=== PATIENT | male | born 1990 | race Caucasian/White ===

== ENCOUNTER 2019-02-21 13:19 | Emergency (ER) | payer MEDICAID ==
[~2019-02-21] VITALS: Ht 190.5 cm; Wt 86.4 kg
[~2019-02-21 13:19] MED LIST: CLIN-96 PO; NO HOME MEDS
[2019-02-21 13:35] VITALS: BP 125/77
[2019-02-21] MEDS ORDERED: CEPH-572 PO (14:49)
[2019-02-21] MEDS ORDERED: SULF1TAB49 PO (14:49)
== END 2019-02-21 15:01 | disposition home or self-care (01) ==
LOC: ER 13:20
DX: L02.416 Cutaneous abscess of left lower limb (principal); L03.116 Cellulitis of left lower limb; F12.90 Cannabis use, unspecified, uncomplicated; Z79.899 Other long term (current) drug therapy
CPT/HCPCS: 99283

== ENCOUNTER 2019-04-21 16:29 | Emergency (ER) | payer MEDICAID ==
[~2019-04-21] VITALS: Ht 190.5 cm; Wt 88.6 kg
[2019-04-21 16:43] VITALS: BP 124/68
[2019-04-21] MEDS ORDERED: PERM60CR19 TP (16:54)
== END 2019-04-21 17:08 | disposition home or self-care (01) ==
LOC: ER 16:29
DX: R21 Rash and other nonspecific skin eruption (principal); L29.9 Pruritus, unspecified; F12.90 Cannabis use, unspecified, uncomplicated; Z79.2 Long term (current) use of antibiotics; Z79.899 Other long term (current) drug therapy
CPT/HCPCS: 99282

== ENCOUNTER 2019-05-22 16:47 | Emergency (ER) | payer MEDICAID ==
[~2019-05-22] VITALS: Ht 190.5 cm; Wt 79.5 kg
[~2019-05-22 16:47] MED LIST changes: +PERM60CR19 TP
[2019-05-22 17:11] LABS: BASOPHILS % (AUTO) 0.2 % (0-1); EOSINOPHILS % (AUTO) 0.3 % (0-6); HEMOGLOBIN 17.2 g/dl (14.0-17.9); LYMPHOCYTES # (AUTO) 1.1 X10'3 (1.1-4.8); LYMPHOCYTES % (AUTO) 11.1 % (21-51); MEAN CORPUSCULAR HEMOGLOBIN 30.9 PG (27.0-31.0); MEAN CORPUSCULAR VOLUME 88.4 FL (78-98); MEAN PLATELET VOLUME 8.2 FL (7.4-10.4); MONOCYTES # (AUTO) 0.8 X10'3 (0-0.9); MONOCYTES % (AUTO) 7.7 % (2-12); NEUTROPHILS # (AUTO) 8.2 X10'3 (1.8-7.7); NEUTROPHILS % (AUTO) 80.7 % (42-75); PLATELET COUNT 215 X10'3 (140-440); RED BLOOD COUNT 5.55 X10'6 (4.70-6.10); RED CELL DISTRIBUTION WIDTH 12.7 % (11.5-14.5); WHITE BLOOD COUNT 10.2 X10'3 (4.5-11.0)
[2019-05-22 17:21] LABS: ALANINE AMINOTRANSFERASE 51 U/L (12-78); ALBUMIN 4.2 G/DL (3.4-5.0); ALBUMIN/GLOBULIN RATIO 1.1 (1.1-1.5); ALKALINE PHOSPHATASE 60 IU/L (46-116); ANION GAP 8 (8-16); ASPARTATE AMINO TRANSFERASE 19 U/L (10-37); BILIRUBIN,TOTAL 0.8 MG/DL (0.1-1.0); BLOOD UREA NITROGEN 14 MG/DL (7-18); BUN/CREATININE RATIO 13.7 (5.4-32.0); CALCIUM 9.3 MG/DL (8.5-10.1); CHLORIDE 99 MMOL/L (99-107); CREATININE 1.02 MG/DL (0.60-1.10); GLUCOSE 146 MG/DL (70-104); SODIUM 138 MMOL/L (135-145); TOTAL CARBON DIOXIDE 31.2 MMOL/L (24-32); TOTAL PROTEIN 7.9 G/DL (6.4-8.2); eGFR 88 ML/MIN
[2019-05-22 17:26] LABS: POTASSIUM 2.9 MMOL/L (3.5-5.1)
[2019-05-22] MEDS ORDERED: potassium chloride 10mEq CAPSULE.SA PO STA (17:27)
[2019-05-22] MEDS ORDERED: potassium Cl 10 mEq/100mL bag IV ONE (17:30)
[2019-05-22] MEDS ORDERED: potassium Cl 20 mEq SR tablet PO ONE (17:45)
[2019-05-22] MEDS ORDERED: dicyclomine 10 MG capsule PO ONE (18:40)
[2019-05-22 19:08] LABS: CLARITY,URINE CLEAR (Clear); COLOR,URINE YELLOW (Yellow); GLUCOSE, URINE NEGATIVE (Neg); KETONES,URINE NEGATIVE (Neg); LEUKOCYTE ESTERASE ,URINE NEGATIVE (Neg); NITRITES, URINE NEGATIVE (Neg); OCCULT BLOOD,URINE NEGATIVE (Neg); PH,URINE 8.5 (4.8-8.0); PROTEIN,URINE NEGATIVE (Neg); UA COLLECTION TYPE VOIDED
[2019-05-22] MEDS ORDERED: DICY10CA88 PO (19:28)
[2019-05-22] MEDS ORDERED: ONDA4TAB6 PO (19:28)
[2019-05-22 19:36] VITALS: BP 132/85
== END 2019-05-22 19:38 | disposition home or self-care (01) ==
LOC: ER 16:48
DX: R11.2 Nausea with vomiting, unspecified (principal); E87.6 Hypokalemia; F12.90 Cannabis use, unspecified, uncomplicated
CPT/HCPCS: 36415; 80053; 81003; 85025; 85610; 96365; 96366; 99283; J3480

== ENCOUNTER 2019-05-24 00:12 | Emergency (ER) | payer MEDICAID ==
[~2019-05-24] VITALS: Ht 190.5 cm; Wt 62.9 kg
[~2019-05-24 00:12] MED LIST changes: +DICY10CA88 PO; +ONDA4TAB6 PO
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
[2019-05-24 01:46] LABS: ALANINE AMINOTRANSFERASE 46 U/L (12-78); ALBUMIN/GLOBULIN RATIO 1.3 (1.1-1.5); ALKALINE PHOSPHATASE 55 IU/L (46-116); ANION GAP 9 (8-16); ASPARTATE AMINO TRANSFERASE 14 U/L (10-37); BILIRUBIN,TOTAL 0.6 MG/DL (0.1-1.0); BLOOD UREA NITROGEN 6 MG/DL (7-18); BUN/CREATININE RATIO 7.4 (5.4-32.0); CALCIUM 8.8 MG/DL (8.5-10.1); CHLORIDE 104 MMOL/L (99-107); CREATININE 0.81 MG/DL (0.60-1.10); GLUCOSE 104 MG/DL (70-104); POTASSIUM 3.6 MMOL/L (3.5-5.1); SODIUM 139 MMOL/L (135-145); TOTAL CARBON DIOXIDE 25.6 MMOL/L (24-32); TOTAL PROTEIN 7.2 G/DL (6.4-8.2); eGFR > 90 ML/MIN
[2019-05-24 01:48] LABS: BASOPHILS % (AUTO) 0.2 % (0-1); EOSINOPHILS % (AUTO) 0.4 % (0-6); HEMOGLOBIN 15.8 g/dl (14.0-17.9); LYMPHOCYTES # (AUTO) 1.2 X10'3 (1.1-4.8); LYMPHOCYTES % (AUTO) 13.9 % (21-51); MEAN CORPUSCULAR HEMOGLOBIN 31.1 PG (27.0-31.0); MEAN CORPUSCULAR HGB CONC 35.1 g/dL (33.0-36.5); MEAN CORPUSCULAR VOLUME 88.7 FL (78-98); MEAN PLATELET VOLUME 8.4 FL (7.4-10.4); MONOCYTES # (AUTO) 0.5 X10'3 (0-0.9); MONOCYTES % (AUTO) 5.4 % (2-12); NEUTROPHILS # (AUTO) 6.8 X10'3 (1.8-7.7); NEUTROPHILS % (AUTO) 80.1 % (42-75); PLATELET COUNT 193 X10'3 (140-440); RED BLOOD COUNT 5.07 X10'6 (4.70-6.10); RED CELL DISTRIBUTION WIDTH 12.8 % (11.5-14.5); WHITE BLOOD COUNT 8.5 X10'3 (4.5-11.0)
[2019-05-24 02:36] VITALS: BP 136/81
== END 2019-05-24 03:39 | disposition left against medical advice (07) ==
LOC: ER 00:13
DX: R10.9 Unspecified abdominal pain (principal); R11.10 Vomiting, unspecified; Z53.21 Procedure and treatment not carried out due to patient leaving prior to being seen by health care provider
CPT/HCPCS: 36415; 80053; 85025

== ENCOUNTER 2019-08-30 11:27 | Emergency (ER) | payer MEDICAID ==
[~2019-08-30] VITALS: Ht 190.5 cm; Wt 83.0 kg
[~2019-08-30 11:27] MED LIST changes: +CLIN-90 PO; -CLIN-96 PO; -PERM60CR19 TP
[2019-08-30 11:48] VITALS: BP 131/64
== END 2019-08-30 13:36 | disposition left against medical advice (07) ==
LOC: ER 11:28
DX: N48.21 Abscess of corpus cavernosum and penis (principal); Z53.21 Procedure and treatment not carried out due to patient leaving prior to being seen by health care provider

== ENCOUNTER 2020-01-23 19:59 | Emergency (ER) | payer MEDICAID, OTHER ==
[~2020-01-23] VITALS: Ht 190.5 cm; Wt 90.0 kg
[~2020-01-23 19:59] MED LIST changes: -CLIN-90 PO; +CLIN-97 PO
[2020-01-23 20:08] VITALS: BP 166/79
[2020-01-23] MEDS ORDERED: ACET-3067 PO (20:17)
[2020-01-23] MEDS ORDERED: PENI500T2 PO (20:17)
== END 2020-01-23 20:25 | disposition home or self-care (01) ==
LOC: ER 20:00
DX: K02.9 Dental caries, unspecified (principal); F12.90 Cannabis use, unspecified, uncomplicated
CPT/HCPCS: 99283

== ENCOUNTER 2020-01-31 00:54 | Emergency (ER) | payer MEDICAID, OTHER ==
[~2020-01-31] VITALS: Ht 190.5 cm; Wt 88.6 kg
[~2020-01-31 00:54] MED LIST changes: +PENI500T2 PO
[2020-01-31] MEDS ORDERED: SULF1TAB49 PO (01:25)
[2020-01-31 01:45] VITALS: BP 151/71
== END 2020-01-31 01:47 | disposition home or self-care (01) ==
LOC: ER 00:55
DX: L03.115 Cellulitis of right lower limb (principal); L02.415 Cutaneous abscess of right lower limb; F12.90 Cannabis use, unspecified, uncomplicated; Z79.2 Long term (current) use of antibiotics; Z79.899 Other long term (current) drug therapy
CPT/HCPCS: 99283

== ENCOUNTER 2020-04-28 17:33 | Emergency (ER) | payer MEDICAID, OTHER ==
[~2020-04-28] VITALS: Ht 190.5 cm; Wt 88.6 kg
[~2020-04-28 17:33] MED LIST changes: -PENI500T2 PO
[2020-04-28 17:52] VITALS: BP 136/75
[2020-04-28] MEDS ORDERED: CLIN300C70 PO (18:21)
== END 2020-04-28 18:41 | disposition home or self-care (01) ==
LOC: ER 17:34
DX: K04.7 Periapical abscess without sinus (principal); F12.90 Cannabis use, unspecified, uncomplicated; Z79.2 Long term (current) use of antibiotics; Z79.899 Other long term (current) drug therapy
CPT/HCPCS: 99283

== ENCOUNTER 2020-11-27 01:40 | Emergency (ER) | payer MEDICAID, OTHER ==
[~2020-11-27] VITALS: Ht 190.5 cm; Wt 88.6 kg
[2020-11-27] MEDS ORDERED: normal saline 1000ML IV soln IVB ONE (02:35)
[2020-11-27] MEDS ORDERED: pantoprazole 40 MG vial IV ONE (02:35)
[2020-11-27] MEDS ORDERED: ondansetron/PF 4mg/2ml inj IV ONE (02:35)
[2020-11-27 03:45] LABS: BASOPHILS % (AUTO) 0.1 % (0-1); EOSINOPHILS % (AUTO) 0.1 % (0-6); HEMATOCRIT 48.9 % (42.0-52.0); HEMOGLOBIN 16.5 g/dl (14.0-17.9); LYMPHOCYTES # (AUTO) 0.9 X10'3 (1.1-4.8); LYMPHOCYTES % (AUTO) 8.6 % (21-51); MEAN CORPUSCULAR HEMOGLOBIN 30.6 PG (27.0-31.0); MEAN CORPUSCULAR HGB CONC 33.8 g/dL (33.0-36.5); MEAN CORPUSCULAR VOLUME 90.4 FL (78-98); MEAN PLATELET VOLUME 8.9 FL (7.4-10.4); MONOCYTES # (AUTO) 0.3 X10'3 (0-0.9); NEUTROPHILS # (AUTO) 8.7 X10'3 (1.8-7.7); NEUTROPHILS % (AUTO) 88.2 % (42-75); PLATELET COUNT 205 X10'3 (140-440); RED CELL DISTRIBUTION WIDTH 12.7 % (11.5-14.5); WHITE BLOOD COUNT 9.9 X10'3 (4.5-11.0)
[2020-11-27 04:08] LABS: ALANINE AMINOTRANSFERASE 21 U/L (12-78); ALBUMIN 4.4 G/DL (3.4-5.0); ALBUMIN/GLOBULIN RATIO 1.2 (1.1-1.5); ALKALINE PHOSPHATASE 69 IU/L (46-116); ANION GAP 11 (8-16); ASPARTATE AMINO TRANSFERASE 18 U/L (10-37); BILIRUBIN,TOTAL 0.5 MG/DL (0.1-1.0); BLOOD UREA NITROGEN 15 MG/DL (7-18); BUN/CREATININE RATIO 19.2 (5.4-32.0); CALCIUM 9.6 MG/DL (8.5-10.1); CHLORIDE 105 MMOL/L (99-107); CREATININE 0.78 MG/DL (0.60-1.10); GLUCOSE 134 MG/DL (70-104); LIPASE 50 U/L (73-393); SODIUM 142 MMOL/L (135-145); TOTAL CARBON DIOXIDE 26.1 MMOL/L (24-32); TOTAL PROTEIN 8.1 G/DL (6.4-8.2); eGFR > 90 ML/MIN
[2020-11-27] MEDS ORDERED: ONDA8TAB13 PO (04:31)
[2020-11-27] MEDS ORDERED: PANT-47 PO (04:31)
[2020-11-27 04:52] VITALS: BP 139/88
== END 2020-11-27 04:55 | disposition home or self-care (01) ==
LOC: ER 01:40
DX: R10.13 Epigastric pain (principal); R11.2 Nausea with vomiting, unspecified; F17.200 Nicotine dependence, unspecified, uncomplicated; Z88.0 Allergy status to penicillin; Z79.899 Other long term (current) drug therapy
CPT/HCPCS: 36415; 80053; 83690; 85025; 96361; 96374; 96375; 99284; C9113; J2405; J7030

== ENCOUNTER 2021-06-29 18:59 | Emergency (ER) | payer MEDICAID ==
[~2021-06-29] VITALS: Ht 190.5 cm; Wt 40.9 kg
[~2021-06-29 18:59] MED LIST changes: +ONDA8TAB13 PO; +PANT-47 PO
[2021-06-29 19:16] VITALS: BP 139/77
[2021-06-29] MEDS ORDERED: orphenadrine citrate 60mg/2ml inj. IM ONE (19:40)
[2021-06-29] MEDS ORDERED: ketorolac tromethamine 15mg/ml inj. IM ONE (19:40)
[2021-06-29] MEDS ORDERED: METH-797 PO (19:45)
[2021-06-29] MEDS ORDERED: NAPR-56 PO (19:45)
== END 2021-06-29 20:17 | disposition home or self-care (01) ==
LOC: ER 18:59
DX: M43.6 Torticollis (principal); M54.2 Cervicalgia; G89.29 Other chronic pain; Z88.0 Allergy status to penicillin; Z79.2 Long term (current) use of antibiotics; Z79.899 Other long term (current) drug therapy
CPT/HCPCS: 96372; 99284; J1885; J2360

== ENCOUNTER 2021-09-26 10:38 | Emergency (ER) | payer MEDICAID ==
[~2021-09-26] VITALS: Ht 190.5 cm; Wt 91.0 kg
[~2021-09-26 10:38] MED LIST changes: +METH-797 PO
[2021-09-26 10:44] VITALS: BP 129/79
== END 2021-09-26 17:07 | disposition left against medical advice (07) ==
LOC: ER 10:39
DX: K13.29 Other disturbances of oral epithelium, including tongue (principal); Z53.21 Procedure and treatment not carried out due to patient leaving prior to being seen by health care provider

== ENCOUNTER 2021-11-07 22:02 | Emergency (ER) | payer MEDICAID, OTHER ==
--- NOTE | 2021-11-07 23:04 | NUR ---
NOT IN LOBBY X1
== END 2021-11-08 03:55 | disposition left against medical advice (07) ==
LOC: ER 22:03
DX: Z53.21 Procedure and treatment not carried out due to patient leaving prior to being seen by health care provider (principal); M54.2 Cervicalgia

== ENCOUNTER 2022-05-25 08:42 | Emergency (ER) | payer MEDICAID, OTHER ==
[~2022-05-25] VITALS: Ht 190.5 cm; Wt 95.5 kg
[2022-05-25 09:43] LABS: BASOPHILS % (AUTO) 0.1 % (0-1); EOSINOPHILS % (AUTO) 0.2 % (0-6); HEMATOCRIT 47.6 % (42.0-52.0); HEMOGLOBIN 16.5 g/dl (14.0-17.9); LYMPHOCYTES # (AUTO) 0.9 X10'3 (1.1-4.8); LYMPHOCYTES % (AUTO) 7.7 % (21-51); MEAN CORPUSCULAR HEMOGLOBIN 31.3 PG (27.0-31.0); MEAN CORPUSCULAR HGB CONC 34.7 g/dL (33.0-36.5); MEAN CORPUSCULAR VOLUME 90.2 FL (78-98); MEAN PLATELET VOLUME 8.1 FL (7.4-10.4); MONOCYTES # (AUTO) 0.4 X10'3 (0-0.9); NEUTROPHILS # (AUTO) 10.7 X10'3 (1.8-7.7); PLATELET COUNT 205 X10'3 (140-440); RED BLOOD COUNT 5.28 X10'6 (4.70-6.10); RED CELL DISTRIBUTION WIDTH 12.8 % (11.5-14.5); WHITE BLOOD COUNT 12.1 X10'3 (4.5-11.0)
[2022-05-25 09:51] LABS: ALANINE AMINOTRANSFERASE 46 U/L (12-78); ALBUMIN 4.5 G/DL (3.4-5.0); ALBUMIN/GLOBULIN RATIO 1.2 (1.1-1.5); ALKALINE PHOSPHATASE 65 IU/L (46-116); ANION GAP 9 (8-16); ASPARTATE AMINO TRANSFERASE 23 U/L (10-37); BILIRUBIN,TOTAL 0.6 MG/DL (0.1-1.0); BLOOD UREA NITROGEN 20 MG/DL (7-18); BUN/CREATININE RATIO 21.7 (5.4-32.0); CALCIUM 9.5 MG/DL (8.5-10.1); CHLORIDE 104 MMOL/L (99-107); CREATININE 0.92 MG/DL (0.60-1.10); GLUCOSE 196 MG/DL (70-104); LIPASE < 50 U/L (73-393); SODIUM 143 MMOL/L (135-145); TOTAL CARBON DIOXIDE 29.7 MMOL/L (24-32); TOTAL PROTEIN 8.3 G/DL (6.4-8.2); eGFR > 90 ML/MIN
[2022-05-25 10:03] VITALS: BP 133/82
[2022-05-25] MEDS ORDERED: normal saline 1000ML IV soln IVB ONE (10:30)
[2022-05-25] MEDS ORDERED: diphenhydrAMINE 50 mg/ml inj IV ONE (10:30)
[2022-05-25] MEDS ORDERED: ondansetron/PF 4mg/2ml inj IV ONE (10:30)
[2022-05-25] MEDS ORDERED: haloperidol lactate 5mg/ml inj IM ONE (10:30)
== END 2022-05-25 12:18 | disposition home or self-care (01) ==
LOC: ER 08:42
DX: R11.15 Cyclical vomiting syndrome unrelated to migraine (principal); R11.2 Nausea with vomiting, unspecified; G89.29 Other chronic pain; Z88.0 Allergy status to penicillin; Z79.2 Long term (current) use of antibiotics; Z79.899 Other long term (current) drug therapy
CPT/HCPCS: 36415; 80053; 83690; 85025; 96372; 96374; 96375; 99284; J1200; J1630; J2405; J7030

== ENCOUNTER 2022-07-04 10:11 | Emergency (ER) | payer MEDICAID ==
[~2022-07-04] VITALS: Ht 190.5 cm; Wt 100.0 kg
[2022-07-04 10:16] VITALS: BP 159/96
[2022-07-04] MEDS ORDERED: HYDR-3965 PO (11:39)
[2022-07-04] MEDS ORDERED: HYDROcodone/acetaminophen 5mg/325mg tablet PO ONE (11:45)
== END 2022-07-04 12:04 | disposition home or self-care (01) ==
LOC: VAS 10:11
DX: S02.5XXA Fracture of tooth (traumatic), initial encounter for closed fracture (principal); K08.89 Other specified disorders of teeth and supporting structures; K02.9 Dental caries, unspecified; G89.29 Other chronic pain; Z88.0 Allergy status to penicillin; X58.XXXA Exposure to other specified factors, initial encounter; Y93.89 Activity, other specified; Y92.89 Other specified places as the place of occurrence of the external cause; Y99.8 Other external cause status
CPT/HCPCS: 99283

== ENCOUNTER 2022-07-08 21:50 | Emergency (ER) | payer MEDICAID ==
[~2022-07-08] VITALS: Ht 190.5 cm; Wt 102.3 kg
[2022-07-08] MEDS ORDERED: LIDOcaine Viscous 15ml cup MM STA (22:28)
[2022-07-08] MEDS ORDERED: chlorhexidine gluconate 15ml Cup****oral rinse MM ONE (22:30)
[2022-07-08] MEDS ORDERED: LIDOcaine 1% w/EPI 1:100,000 30ml vial (MDV) IJ ONE (22:30)
[2022-07-08] MEDS ORDERED: BUPIVAcaine/PF 2.5 mg/ml (0.25%) 30ml vial IJ ONE (22:30)
[2022-07-08] MEDS ORDERED: ketorolac trometh inj. 60 MG/2 ML VIAL IM ONE (22:35)
[2022-07-08] MEDS ORDERED: clindamycin 150mg capsule PO ONE (23:35)
[2022-07-08] MEDS ORDERED: KETO10TA2 PO (23:39)
[2022-07-08] MEDS ORDERED: CLIN150C2 PO (23:39)
[2022-07-08] MEDS ORDERED: ACET650T58 PO (23:40)
[2022-07-09 00:06] VITALS: BP 128/67
== END 2022-07-09 00:19 | disposition home or self-care (01) ==
LOC: ER 21:51
DX: K02.9 Dental caries, unspecified (principal); K08.89 Other specified disorders of teeth and supporting structures; G89.29 Other chronic pain; Z88.0 Allergy status to penicillin; Z88.5 Allergy status to narcotic agent; Z79.2 Long term (current) use of antibiotics; Z79.899 Other long term (current) drug therapy
CPT/HCPCS: 64400; 96372; 99284; J1885; J3490

== ENCOUNTER 2022-07-22 00:57 | Emergency (ER) | payer MEDICAID ==
[~2022-07-22] VITALS: Ht 193 cm; Wt 100.0 kg
[~2022-07-22 00:57] MED LIST changes: +KETO10TA2 PO
[2022-07-22 01:03] VITALS: BP 139/91
[2022-07-22] MEDS ORDERED: HYDROcodone/acetaminophen 5mg/325mg tablet PO ONE (01:10)
== END 2022-07-22 04:00 | disposition home or self-care (01) ==
LOC: ER 00:57
DX: K08.89 Other specified disorders of teeth and supporting structures (principal); G89.29 Other chronic pain; Z88.0 Allergy status to penicillin; Z88.5 Allergy status to narcotic agent; Z79.899 Other long term (current) drug therapy; Z79.1 Long term (current) use of non-steroidal anti-inflammatories (NSAID)
CPT/HCPCS: 99283

== ENCOUNTER 2022-07-27 13:20 | Emergency (ER) | payer MEDICAID ==
[~2022-07-27] VITALS: Ht 190.5 cm; Wt 100.0 kg
[2022-07-27 13:25] VITALS: BP 144/78
[2022-07-27] MEDS ORDERED: IBUP-1984 PO (14:19)
[2022-07-27] MEDS ORDERED: HYDROcodone/acetaminophen 10/325mg tab PO ONE (14:20)
[2022-07-27] MEDS ORDERED: ondansetron 4mg rapidly disintigrating tab PO ONE (14:20)
== END 2022-07-27 14:35 | disposition home or self-care (01) ==
LOC: ER 13:21
DX: K04.7 Periapical abscess without sinus (principal); Z88.0 Allergy status to penicillin; Z88.5 Allergy status to narcotic agent; Z79.899 Other long term (current) drug therapy; Z79.2 Long term (current) use of antibiotics; Z79.1 Long term (current) use of non-steroidal anti-inflammatories (NSAID)
CPT/HCPCS: 99283

== ENCOUNTER 2022-08-17 15:58 | Emergency (ER) | payer MEDICAID ==
[~2022-08-17] VITALS: Ht 190.5 cm; Wt 100.0 kg
[2022-08-17 16:13] VITALS: BP 121/64
[2022-08-17] MEDS ORDERED: HYDR-3965 PO (17:55)
[2022-08-17] MEDS ORDERED: HYDROcodone/acetaminophen 5mg/325mg tablet PO ONE (18:10)
== END 2022-08-17 18:10 | disposition home or self-care (01) ==
LOC: ER 15:59
DX: M54.59 Other low back pain (principal); G89.29 Other chronic pain; W19.XXXA Unspecified fall, initial encounter; Y93.89 Activity, other specified; Y92.89 Other specified places as the place of occurrence of the external cause; Y99.8 Other external cause status
CPT/HCPCS: 99283

== ENCOUNTER 2022-09-14 16:26 | Emergency (ER) | payer MEDICAID ==
[~2022-09-14] VITALS: Ht 190.5 cm; Wt 102.3 kg
[~2022-09-14 16:26] MED LIST changes: +HYDR-3965 PO
[2022-09-14 16:58] VITALS: BP 138/75
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
[2022-09-14] MEDS ORDERED: HYDR-3965 PO (20:23)
== END 2022-09-14 20:49 | disposition home or self-care (01) ==
LOC: ER 16:26
DX: S29.012A Strain of muscle and tendon of back wall of thorax, initial encounter (principal); M54.6 Pain in thoracic spine; G89.29 Other chronic pain; Z88.0 Allergy status to penicillin; Z88.5 Allergy status to narcotic agent; Z79.2 Long term (current) use of antibiotics; Z79.899 Other long term (current) drug therapy; X58.XXXA Exposure to other specified factors, initial encounter; Y93.89 Activity, other specified; Y92.89 Other specified places as the place of occurrence of the external cause; Y99.8 Other external cause status
CPT/HCPCS: 72070; 99284

== ENCOUNTER 2023-12-25 10:27 | Emergency (ER) | payer MEDICAID ==
[~2023-12-25] VITALS: Ht 193 cm; Wt 100.5 kg
[~2023-12-25 10:27] MED LIST changes: -HYDR-3965 PO
[2023-12-25 10:30] VITALS: BP 157/90; PULSE 78; RESP 18; TEMP 98; O2SAT 98
[2023-12-25 11:06] LABS: BASOPHILS % (AUTO) 0.2 % (0-1); EOSINOPHILS % (AUTO) 0.2 % (0-6); HEMATOCRIT 45.6 % (42.0-52.0); HEMOGLOBIN 15.8 g/dl (14.0-17.9); LYMPHOCYTES % (AUTO) 12.5 % (21-51); MEAN CORPUSCULAR HGB CONC 34.7 g/dL (33.0-36.5); MEAN CORPUSCULAR VOLUME 89.2 FL (78-98); MEAN PLATELET VOLUME 8.2 FL (7.4-10.4); MONOCYTES # (AUTO) 0.6 X10'3 (0-0.9); MONOCYTES % (AUTO) 7.7 % (2-12); NEUTROPHILS # (AUTO) 6.5 X10'3 (1.8-7.7); NEUTROPHILS % (AUTO) 79.4 % (42-75); PLATELET COUNT 197 X10'3 (140-440); RED BLOOD COUNT 5.11 X10'6 (4.70-6.10); RED CELL DISTRIBUTION WIDTH 12.7 % (11.5-14.5); WHITE BLOOD COUNT 8.2 X10'3 (4.5-11.0)
[2023-12-25 11:27] LABS: BILIRUBIN,URINE MODERATE (Neg); CLARITY,URINE CLEAR (Clear); COLOR,URINE YELLOW (Yellow); GLUCOSE, URINE 100 mg/dl (Neg); KETONES,URINE >=80 mg/dl (Neg); LEUKOCYTE ESTERASE ,URINE NEGATIVE (Neg); NITRITES, URINE NEGATIVE (Neg); OCCULT BLOOD,URINE NEGATIVE (Neg); PH,URINE 6.5 (4.8-8.0); PROTEIN,URINE 30 mg/dl (Neg)
[2023-12-25 11:45] LABS: ALANINE AMINOTRANSFERASE 44 U/L (12-78); ALBUMIN 4.1 G/DL (3.4-5.0); ALBUMIN/GLOBULIN RATIO 1.1 (1.1-1.5); ALKALINE PHOSPHATASE 53 IU/L (46-116); AMYLASE 24 U/L (25-115); ANION GAP 11 (8-16); ASPARTATE AMINO TRANSFERASE 16 U/L (10-37); BILIRUBIN,TOTAL 0.9 MG/DL (0.1-1.0); BLOOD UREA NITROGEN 16 MG/DL (7-18); BUN/CREATININE RATIO 18.2 (10.0-20.0); CALCIUM 9.2 MG/DL (8.5-10.1); CHLORIDE 104 MMOL/L (99-107); CREATININE 0.88 MG/DL (0.60-1.10); GLUCOSE 131 MG/DL (70-104); LIPASE 18 U/L (16-77); POTASSIUM 3.2 MMOL/L (3.5-5.1); SODIUM 140 MMOL/L (135-145); TOTAL PROTEIN 7.8 G/DL (6.4-8.2); eCRCL 149 ML/MIN; eGFR > 90 ML/MIN
[2023-12-25 11:55] LABS: UA COLLECTION TYPE CLN CATCH MIDSTREAM
[2023-12-25 11:56] LABS: MUCUS STRANDS MODERATE /LPF (Neg); SQUAMOUS EPITHELIAL CELL,UR FEW /LPF (FEW); WBC,URINE 0-4 /HPF (0-4)
[2023-12-25 11:57] LABS: BACTERIA,URINE FEW /HPF (Neg)
[2023-12-25] MEDS: haloperidol lactate 5mg/ml inj IM ONE (12:00)
== END 2023-12-25 12:26 | disposition home or self-care (01) ==
LOC: ER 10:28
DX: R11.10 Vomiting, unspecified (principal); R10.9 Unspecified abdominal pain; Z88.5 Allergy status to narcotic agent; Z79.2 Long term (current) use of antibiotics; Z79.899 Other long term (current) drug therapy
CPT/HCPCS: 36415; 80053; 81001; 82150; 83690; 85025; 96372; 99283; J1630